=== PATIENT | female | born 1980 | race African-American/Black ===

== ENCOUNTER 2019-01-21 05:41 | Inpatient (IN) | payer MEDICAID ==
[~2019-01-21] VITALS: Ht 160 cm; Wt 92.5 kg
[~2019-01-21 05:41] MED LIST: ACET-2708 PO; AMLO5TAB88 PO; CETI10TA6 PO; DIPH25CA83 PO; FLOV44 IH; LACT1CAP56 PO; MONT10TA24 PO
[2019-01-21] MEDS ORDERED: CEFOXITIN SODIUM 2 G in DEXT 5% WATER 100 ML IV NR (05:44)
[2019-01-21] MEDS ORDERED: LACTATED RINGERS 1,000 ML IV SCH (06:00)
[2019-01-21 06:09] LABS: UCG SCREEN NEGATIVE
[2019-01-21] MEDS ORDERED: LIDOCAINE HCL 1% 20ML VIAL (Pyxis) INJ ONE ×2 (06:34→08:34)
[2019-01-21] MEDS ORDERED: INDOCYANINE GREEN 25 MG VIAL IV ONE (06:34)
[2019-01-21] MEDS ORDERED: BACITRACIN 50,000 UNITS/VIAL ONE (06:34)
[2019-01-21] MEDS ORDERED: BUPIVACAINE HCL 0.5% (5MG/ML) 50ML ONE (06:34)
[2019-01-21] MEDS ORDERED: SKIN ADHESIVE 0.7 GM EA TOP ONE (06:34)
[2019-01-21] MEDS ORDERED: FENTANYL CITRATE/PF 50MCG/ML 2ML VIAL ONE (07:11)
[2019-01-21] MEDS ORDERED: GLYCOPYRROLATE 0.2 MG/ML 2ML VIAL ONE (07:11)
[2019-01-21] MEDS ORDERED: PROPOFOL 200MG/20ML VIAL IV ONE (07:11)
[2019-01-21] MEDS ORDERED: NEOSTIGMINE METHYLSULFATE 1MG/ML 10 ML VIAL ONE (07:11)
[2019-01-21] MEDS ORDERED: ROCURONIUM BROMIDE 10MG/ML VIAL 5ML IV ONE (07:11)
[2019-01-21] MEDS ORDERED: MIDAZOLAM HCL 2 MG/2 ML VIAL ONE (07:11)
[2019-01-21] MEDS ORDERED: ONDANSETRON HCL 4MG/2ML INJ ONE (07:38)
[2019-01-21] MEDS ORDERED: DEXAMETHASONE 4MG/ML 1ML VIAL ONE (07:38)
[2019-01-21] MEDS ORDERED: LABETALOL HCL 5MG/ML VIAL 20ML IV ONE (07:39)
[2019-01-21] MEDS ORDERED: FENTANYL CITRATE/PF 50MCG/ML 5ML VIAL ONE (07:58)
[2019-01-21] MEDS ORDERED: ONDANSETRON HCL 4MG/2ML INJ IV PRN ×2 (08:15→09:45)
[2019-01-21] MEDS ORDERED: LABETALOL HCL 20MG/4ML CARPUJECT IV PRN (08:15)
[2019-01-21] MEDS ORDERED: HYDRALAZINE 20MG/ML VIAL ONE (08:34)
[2019-01-21] MEDS: HYDROMORPHONE HCL/PF 2MG/ML CPJ IV PRN ×2 (09:02→09:10)
[2019-01-21] MEDS: MEPERIDINE HCL/PF 25MG/ML CPJ IV PRN ×2 (09:25→10:37)
[2019-01-21 12:55] VITALS: BP 117/71
[2019-01-21] MEDS ORDERED: HYDROMORPHONE HCL/PF 2MG/ML CPJ IV PRN (13:00)
[2019-01-21] MEDS: KETOROLAC 30MG/ML VIAL IV SCH ×2 (13:00→20:54)
[2019-01-21] MEDS: SODIUM CHLORIDE 0.45% 1,000 ML IV SCH (15:34)
[2019-01-21] MEDS ORDERED: CALCIUM CARBONATE 500MG TABLET CHEW PO PRN (19:15)
[2019-01-21] MEDS ORDERED: OMEPRAZOLE 20MG CAPSULE EXTENDED RELEASE PO NR (19:15)
[2019-01-21] MEDS ORDERED: METOCLOPRAMIDE HCL 10MG TABLET PO NR (19:15)
[2019-01-21] MEDS ORDERED: AMLO5TAB88 MT (20:33)
[2019-01-21] MEDS ORDERED: MONT4TAB11 MT (20:33)
[2019-01-21] MEDS ORDERED: CETI10CA11 MT (20:33)
[2019-01-22] MEDS: KETOROLAC 30MG/ML VIAL IV SCH ×2 (01:47→06:37)
[2019-01-22] MEDS: SODIUM CHLORIDE 0.45% 1,000 ML IV SCH (01:47)
[2019-01-22 08:00] VITALS: BP_SYST 113; BP_SYST 131; BP_DIAS 70
[2019-01-22 10:54] VITALS: BP 113/70
== END 2019-01-22 11:21 | disposition home or self-care (01) | DRG 263 ==
LOC: OR 05:41 → 6EST 05:42
PROVIDERS: ADMIT Specialist; ATTEND Specialist
PROC: 0FT44ZZ Resection of Gallbladder, Percutaneous Endoscopic Approach (ICD-10-PCS; principal; 2019-01-21)
PROC: 8E0W4CZ Robotic Assisted Procedure of Trunk Region, Percutaneous Endoscopic Approach (ICD-10-PCS; 2019-01-21)
DX: K80.10 Calculus of gallbladder with chronic cholecystitis without obstruction (principal); I10 Essential (primary) hypertension; Z79.51 Long term (current) use of inhaled steroids
CPT/HCPCS: 81025; 88304; J0360; J0694; J1100; J1170; J1885; J2175; J2250; J2405; J2704; J2710; J3010; J3490; J7060; J8597; Q9957

== ENCOUNTER 2019-04-09 22:10 | Emergency (ER) | payer MEDICAID ==
[~2019-04-09] VITALS: Ht 160 cm; Wt 84.3 kg
[~2019-04-09 22:10] MED LIST changes: +AMLO5TAB88 MT; +CETI10CA11 MT; +MONT4TAB11 MT
[2019-04-10 02:14] LABS: BASOPHILS % 0.5 % (0.0-2.0); HEMATOCRIT. 41.5 % (36.0-48.0); HEMOGLOBIN. 14.1 g/dL (12.0-16.0); LYMPHOCYTES % 44.1 % (20.0-50.0); MEAN CORPUSCULAR HEMOGLOBIN 29.7 pg (28.0-32.0); MEAN CORPUSCULAR VOLUME 87.8 fL (81.0-99.0); MEAN PLATELET VOLUME 8.2 fl (7.4-10.4); MONOCYTES % 7.7 % (2.0-8.0); NEUTROPHILS % 46.7 % (40.0-76.0); PLATELET 390 x1000/uL (130-400); RED BLOOD CELL COUNT 4.73 mill/uL (4.2-5.4); RED CELL DISTRIBUTION WIDTH 14.4 % (11.6-14.6)
[2019-04-10 02:15] LABS: CHLORIDE 104 mEq/L (98-107)
[2019-04-10 02:18] LABS: PROTHROMBIN TIME 10.2 sec (9.6-11.0)
[2019-04-10 02:31] LABS: CLARITY URINE CLEAR (CLEAR); COLOR URINE YELLOW (YELLOW); KETONES URINE NEGATIVE (NEGATIVE); LEUKOCYTE ESTERASE URINE NEGATIVE (NEGATIVE); NITRITE URINE NEGATIVE (NEGATIVE); OCCULT BLOOD URINE NEGATIVE (NEGATIVE); PROTEIN URINE NEGATIVE (NEGATIVE); SPECIFIC GRAVITY URINE 1.019 (1.005-1.030)
[2019-04-10] MEDS ORDERED: KETOROLAC 30MG/ML VIAL IV STA (03:05)
[2019-04-10] MEDS ORDERED: KETOROLAC 15MG/ML VIAL IV NR (04:15)
[2019-04-10] MEDS ORDERED: IOHEXOL-300 100 ML BOTTLE ONE (04:58)
[2019-04-10 06:01] VITALS: BP 110/69
== END 2019-04-10 06:13 | disposition home or self-care (01) ==
LOC: ER 22:10
DX: K52.9 Noninfective gastroenteritis and colitis, unspecified (principal); K44.9 Diaphragmatic hernia without obstruction or gangrene; D25.9 Leiomyoma of uterus, unspecified; I10 Essential (primary) hypertension; F12.10 Cannabis abuse, uncomplicated; Z90.49 Acquired absence of other specified parts of digestive tract; Z88.1 Allergy status to other antibiotic agents; Z98.890 Other specified postprocedural states
CPT/HCPCS: 36415; 74177; 80053; 81003; 81025; 83690; 85025; 85610; 96374; 99284; J1885; Q9967

== ENCOUNTER 2023-08-14 23:12 | Emergency (ER) | payer MEDICAID ==
[~2023-08-14 23:12] MED LIST changes: +MONT-39 PO; -MONT10TA24 PO; -MONT4TAB11 MT; +MONT4TAB20 MT
[2023-08-15 00:14] VITALS: PULSE 101
== END 2023-08-15 03:00 | disposition left against medical advice (07) ==
LOC: ER 23:12
DX: R10.84 Generalized abdominal pain (principal); Z53.21 Procedure and treatment not carried out due to patient leaving prior to being seen by health care provider
CPT/HCPCS: 99281